=== PATIENT | female | born 1945 | race Caucasian/White ===

== ENCOUNTER → 2016-12-04 | Outpatient (CLI) | payer OTHER | LOC: KOH-I 11:00 | DX: C34.31 Malignant neoplasm of lower lobe, right bronchus or lung (principal); Z81.0 Family history of intellectual disabilities; N17.9 Acute kidney failure, unspecified; M94.0 Chondrocostal junction syndrome [Tietze]; M85.89 Other specified disorders of bone density and structure, multiple sites | CPT/HCPCS: 77080 ==

== ENCOUNTER → 2021-03-03 | Outpatient (CLI) | payer OTHER | LOC: HEART 5 15:50 | DX: J44.9 Chronic obstructive pulmonary disease, unspecified (principal) | CPT/HCPCS: 94060; 94729 ==

== ENCOUNTER → 2021-03-03 | Outpatient (CLI) | payer OTHER | LOC: RT 17:15 | DX: R09.02 Hypoxemia (principal) | CPT/HCPCS: 36600; 82803 ==